=== PATIENT | female | born 1960 | race Two or more races ===

== ENCOUNTER → 2016-08-25 | Outpatient (CLI) | payer BC ==
--- NOTE | 2016-08-25 09:49 | REP ---
Clinical: Abdominal pain with change in bowel habits and elevated liver function tests . Technique: Templeton scale ultrasound using curved array transducer. Findings: The liver is diffusely increased echogenicity with poor through transmission suggesting fatty infiltration and/or hepatocellular disease with small focus of fatty sparing in the right lobe. The pancreas is normal in appearance and echogenicity. The gallbladder demonstrates small amount of layering sludge without gallstones, wall thickening or pericholecystic fluid. No biliary ductal dilatation is appreciated, and the common bile duct measures 5.4 mm diameter. The right kidney is normal in reniform shape without hydronephrosis and measures 12.5 x 6.2 x 5.3 cm. No ascites. Visualized portions of the abdominal aorta normal. Impression: Small amount of layering sludge in the gallbladder. Fatty infiltration to the liver with focal fatty sparing. Signed by Walt Cruz MD 08/25/2016 09:40 A
== END ==
LOC: M RAD 08:22
PROVIDERS: ATTEND Internal Medicine Gastroenterology
DX: R14.3 Flatulence (principal); R19.4 Change in bowel habit; K76.0 Fatty (change of) liver, not elsewhere classified; K21.9 Gastro-esophageal reflux disease without esophagitis

== ENCOUNTER → 2016-08-26 | Outpatient (REF) | payer BC | LOC: M SMT 17:07 | PROVIDERS: ATTEND Nurse Practitioner Women's Health | DX: R32 Unspecified urinary incontinence (principal) ==

== ENCOUNTER → 2016-09-08 | Outpatient (CLI) | payer BC ==
--- NOTE | 2016-09-08 15:09 | REP ---
LEFT FOOT SERIES: Two views. HISTORY: History of lupus, bilateral foot pain. FINDINGS: Two views left foot demonstrate prominent Achilles and plantar calcaneal spurring. There is osteoarthritic spurring and narrowing of the first MTP joint. Mild midfoot spurring is seen. Ankle joint osteoarthritic spurring is also noted. Overall mineralization pattern is normal. No erosive change is seen. IMPRESSION: Osteoarthritic changes. Otherwise unremarkable. Signed by Joaquin Gayle MD 09/08/2016 05:23 P
--- NOTE | 2016-09-08 15:10 | REP ---
RIGHT FOOT SERIES: TWO VIEWS. HISTORY: History of lupus. Bilateral foot pain. FINDINGS: Overall mineralization pattern is normal. There is mild to moderate osteoarthritic spurring at the midfoot articulations. There is osteoarthritis at the 1st MTP joint. No bony erosive changes seen. There are large Achilles and plantar calcaneal spurs. IMPRESSION: Osteoarthritic midfoot and 1st MTP joint spurring. Heel spurs. Signed by Joaquin Gayle MD 09/08/2016 05:23 P
== END ==
LOC: M ADAMS 13:23
PROVIDERS: ATTEND Internal Medicine
DX: M79.673 Pain in unspecified foot (principal)

== ENCOUNTER → 2016-10-13 | Outpatient (CLI) | payer BC ==
--- NOTE | 2016-10-13 20:34 | REPMRS ---
Patient History The patient states she has not had a clinical breast exam in over a year. Patient is postmenopausal. No known family history of cancer. Digital Woman Screen Mammo: October 13, 2016 - Exam #: [id number] Bilateral CC and MLO view(s) were taken. Technologist: Roya Gonzales, Technologist Prior study comparison: August 18, 2015, digital woman screen mammo performed at [facility] to [facility]. July 02, 2014, digital woman screen mammo performed at [facility]. May 31, 2013, digital woman screen mammo performed at [facility] to [facility]. FINDINGS: There are scattered fibroglandular densities. There has been no change in the appearance of the mammogram from the prior studies. There is a mild amount of scattered fibroglandular density which is fairly symmetric. There is no interval development of dominant mass, architectural distortion, or clustered microcalcification suggestive of malignancy. ASSESSMENT: BI-RADS/ACR category 1 mammogram. Negative. Recommendation Routine screening mammogram in 1 year (for women over age 40). This mammogram was interpreted with the aid of an FDA-approved computer-aided dectection system. Electronically Signed By: Kevin Gayle MD 10/13/16 0105
== END ==
LOC: M WHC 15:28
PROVIDERS: ATTEND Internal Medicine
DX: Z12.31 Encounter for screening mammogram for malignant neoplasm of breast (principal)

== ENCOUNTER 2017-02-17 17:34 | Emergency (ER) | payer BC ==
[~2017-02-17] VITALS: Ht 160 cm; Wt 97.4 kg
[2017-02-17] MEDS ORDERED: AMLO5TAB2 (17:53)
[2017-02-17] MEDS ORDERED: OXYB5TAB (17:53)
[2017-02-17] MEDS ORDERED: WARF-23 (17:53)
[2017-02-17] MEDS ORDERED: METO1TAB32 (17:53)
[2017-02-17] MEDS ORDERED: HYDR200T3 (17:53)
[2017-02-17] MEDS ORDERED: FENO145T (17:53)
[2017-02-17] MEDS ORDERED: IRBE300T10 (17:53)
[2017-02-17] MEDS ORDERED: LATA5OPD (17:53)
[2017-02-17] MEDS ORDERED: FURO40TA2 (17:53)
[2017-02-17] MEDS ORDERED: METF500T13 (17:53)
[2017-02-17] MEDS ORDERED: PANT40TA2 (17:53)
[2017-02-17 19:55] LABS: BASO % 0.6 % (0.0-1.0); EOS % 0.8 % (0.0-3.0); LARGE UNSTAINED CELL # 0.1 K/mm3 (0.0-0.4); LARGE UNSTAINED CELL % 2.8 % (0.0-4.0); LYMPH % 26.7 % (24.0-44.0); MEAN CORPUSCULAR HEMOGLOBIN 31.3 pg (27.0-33.0); MEAN CORPUSCULAR HGB CONC 34.4 g/dl (32.0-36.5); MONO # 0.3 K/mm3 (0.0-0.8); MONO % 7.7 % (0.0-5.0); NEUTROPHILS # 2.3 K/mm3 (1.8-7.7); NEUTROPHILS % 61.3 % (36.0-66.0); PLATELET COUNT, AUTOMATED 160 k/mm3 (150-450); WHITE BLOOD COUNT 3.7 K/mm3 (4.0-10.0)
--- NOTE | 2017-02-17 20:10 | REPUSA ---
HISTORY: DYSETHESIA. TECHNIQUE: Axial CT of head without contrast. DLP= 1407.4 mGy-cm. FINDINGS: Ventricles and sulci are of normal size for this age group. Templeton-white matter differentiati on is intact. There is no evidence of intracranial mass, mass effect, hemorrhage, or cystic lesion id entified. There is no detectable evidence of infarct. No bony lesions are seen in the calvarium or sk ull base. Paranasal sinuses and mastoid sinuses are clear. IMPRESSION: Negative noncontrast head CT examination.
[2017-02-17 20:14] LABS: CALCIUM LEVEL 9.9 MG/DL (8.5-10.1); CREATININE FOR GFR 1.07 MG/DL (0.55-1.02); GLOMERULAR FILTRATION RATE 56.7 (>51); POTASSIUM SERUM 3.8 MEQ/L (3.5-5.1); THYROXINE (T4) 12.4 UG/DL (4.5-12.0)
--- NOTE | 2017-02-17 20:40 | REPUSA ---
CLINICAL HISTORY: DYSETHESIA TECHNIQUE: Multiple axial images were obtained through the cervical spine. Images were also reconstru cted in coronal and sagittal planes. The study was performed without IV contrast. COMMENTS: There is no fracture or spondylolisthesis visualized. The paraspinal soft tissues are unremarkable. T here are no lytic or blastic lesions. Straightening of cervical lordosis is seen, suggesting muscular spasm. There is evidence of multileve l disk disease, demonstrated by osteophytosis and endplate sclerosis. There is broad based disk osteophyte complex noted at C5-6 and C6-7 with biforaminal and canal stenos is. IMPRESSION: 1. No fracture or spondylolisthesis. 2. Straightening of cervical lordosis is seen, suggesting muscular spasm. 3. Multilevel spondylosis. Boad based disk osteophyte complex noted at C5-6 and C6-7 with biforamina l and canal stenosis. Thank you for your kind referral of this patient.
--- NOTE | 2017-02-17 21:03 | ECGEPIP ---
Stationary ECG Study [facility] - ED Test Date: 2017-02-17 Pat Name: GRANT ESTRADA Department: Room: - Gender: F Print Production Associate: ct : 1960 Requested By: KADI OZUNA Order Number: [id number] Reading MD: Giovana Cortés Measurements Intervals [place] Rate: 66 P: 9 WI: 155 QRS: 4 QRSD: 96 T: 15 QT: 409 QTc: 429 Interpretive Statements SINUS RHYTHM SIMILAR 09/07/14 Electronically Signed On 02-17-2017 21:02:44 EDT by Giovana Cortés
[2017-02-17 21:43] LABS: ABG BASE EXCESS 1.3 (-2.0-2.0); ABG HCO3 26.9 MEQ/L (22.0-26.0); ABG PARTIAL PRESSURE CO2 46.6 mmHg (35.0-45.0); ABG STANDARD HCO3 24.9 MEQ/L (22.0-26.0); ABG TOTAL CO2 28.3 MEQ/L (22.0-29.0); ABG pH (ARTERIAL) 7.379 UNITS (7.350-7.450)
[2017-02-17 21:46] LABS: ABG PARTIAL PRESSURE O2 34.5 mmHg (75.0-100.0)
[2017-02-17] MEDS ORDERED: PREGABALIN 50 MG CAP (LYRICA) PO ONE (22:15)
[2017-02-17] MEDS ORDERED: NS 1,000 ML IV ONE (22:15)
[2017-02-17] MEDS ORDERED: PREG50CA PO (23:12)
[2017-02-17 23:16] VITALS: BP 133/76
== END 2017-02-17 23:47 | disposition home or self-care (01) ==
LOC: M ED 17:34
DX: G62.9 Polyneuropathy, unspecified (principal); E86.0 Dehydration; E11.9 Type 2 diabetes mellitus without complications; I10 Essential (primary) hypertension; Z86.73 Personal history of transient ischemic attack (TIA), and cerebral infarction without residual deficits; Z79.01 Long term (current) use of anticoagulants

== ENCOUNTER → 2017-03-28 | Outpatient (CLI) | payer BC ==
[~2017-03-28] MED LIST: AMLO5TAB2; FENO145T; FURO40TA2; HYDR200T3; IRBE300T10; LANS30CA; LATA5OPD; METF500T13; METO1TAB32; OXYB5TAB; PANT40TA2; PREG50CA PO; SUCR1TAB56; WARF-23
--- NOTE | 2017-03-28 09:14 | REP ---
Abdominal right upper quadrant ultrasound: There are multiple comparison abdominal upper quadrant ultrasound is as well as abdominal MRI examinations dated 04/20/2012 and 07/22/2006. There is a focal hypoechoic lesion in the right lobe of the liver today measuring 2.3 1.3 x 1.6 cm. On the prior ultrasound of 07/19 2006. This measured 3.9 x 3.2 x 3.8 cm. On the comparison MRI studies as this had findings compatible with hemangioma. The remainder of the hepatic parenchyma is otherwise mildly echogenic compatible with hepato steatosis with areas of focal fat sparing. There is biliary sludge layering dependently in the gallbladder. There is no cholelithiasis, gallbladder wall thickening or pericholecystic fluid. There is no intrahepatic or extrahepatic biliary duct dilatation, the common duct measures 5.2 mm in diameter. The visualized portion of the pancreatic head is unremarkable. The body and tail are obscured by bowel gas. There is no right renal hydronephrosis, calculus, mass or cyst. Right kidney is normal size measuring 11.6 cm craniocaudad length. Impression: There is no cholelithiasis. There is no ultrasound evidence of acute cholecystitis or biliary duct dilatation. There is a hypoechoic mass in the right lobe of the liver as described in the body of the report. On previous MRI studies, this had findings compatible with hemangioma. It appears to have decreased in size. Signed by Robson Lopez MD 03/28/2017 09:06 A
--- NOTE | 2017-03-28 14:02 | REP ---
Hepatobiliary scan and gallbladder ejection fraction: History: Gastroesophageal reflux disease and abdominal pain. Technique: 6.6 mCi of technetium-99m mebrofenin was injected and sequential anterior images are acquired. 65 minutes after the mebrofenin injection, the patient consumed 8 ounces Ensure and an additional 60 minutes of imaging was acquired. Regions of interest are plotted around the gallbladder. Findings: The initial hepatocellular parenchymal uptake phase is normal and homogeneous. Intra- and extra-hepatic bile ducts and duodenum are labeled by the 15 -minute image. The gallbladder is first labeled on the 15 -minute image. There is normal washout from the liver parenchyma into the gallbladder and small intestine on subsequent images. The gallbladder ejection fraction is three %. Values greater than 35 % are considered normal with this technique. Impression: Normal hepatobiliary scan and delayed gallbladder ejection fraction. Signed by Joqauin Gayle MD 03/28/2017 01:53 P
== END ==
LOC: M RAD 08:06
PROVIDERS: ATTEND Internal Medicine Gastroenterology
DX: R10.9 Unspecified abdominal pain (principal)
CPT/HCPCS: 76705; 78227; A9537; J2805

== ENCOUNTER → 2017-04-21 | Outpatient (REF) | payer BC | LOC: M LAB REF 12:24 | PROVIDERS: ATTEND Internal Medicine Gastroenterology | DX: K21.9 Gastro-esophageal reflux disease without esophagitis (principal); R10.11 Right upper quadrant pain; K30 Functional dyspepsia ==

== ENCOUNTER 2017-04-25 09:48 | Emergency (ER) | payer BC ==
[~2017-04-25] VITALS: Ht 160 cm; Wt 95.5 kg
[~2017-04-25 09:48] MED LIST changes: -LANS30CA; -SUCR1TAB56
[2017-04-25] MEDS ORDERED: LANS30CA (10:05)
[2017-04-25] MEDS ORDERED: SUCR1TAB56 (10:05)
--- NOTE | 2017-04-25 11:00 | REP ---
CT Head without contrast HISTORY: Left temporal headache COMPARISON: 02/17/2017 There is no intraparenchymal hemorrhage, acute infarct, mass or midline shift. The ventricular system is normal in appearance. There is no extra cerebral collection. There is no fracture. The visualized sinuses are clear. IMPRESSION: There is no intracranial lesion. Signed by Ra Butts MD 04/25/2017 10:52 A
[2017-04-25 11:09] LABS: BASO % 0.3 % (0.0-1.0); EOS % 0.6 % (0.0-3.0); IMMATURE GRANULOCYTE % 0.6 % (0-0); LYMPH # 0.9 10^3/uL (1.5-4.5); LYMPH % 24.8 % (24.0-44.0); MEAN CORPUSCULAR HGB CONC 33.8 g/dl (32.0-36.5); MEAN CORPUSCULAR VOLUME 91.6 fl (80.0-96.0); MONO # 0.3 10^3/uL (0.0-0.8); MONO % 8.4 % (0.0-5.0); NEUTROPHILS # 2.3 10^3/uL (1.8-7.7); NEUTROPHILS % 65.3 % (36.0-66.0); PLATELET COUNT, AUTOMATED 147 10^3/uL (150-450); RED CELL DISTRIBUTION WIDTH 13.3 % (11.5-14.5); WHITE BLOOD COUNT 3.5 10^3/uL (4.0-10.0)
[2017-04-25 11:16] LABS: INR 2.04
[2017-04-25 11:26] LABS: ANION GAP 7 MEQ/L (8-16); BLOOD UREA NITROGEN 15 MG/DL (7-18); CALCIUM LEVEL 9.2 MG/DL (8.5-10.1); CARBON DIOXIDE LEVEL 27 MEQ/L (21-32); CHLORIDE LEVEL 110 MEQ/L (98-107); CREATININE FOR GFR 0.67 MG/DL (0.55-1.02); GLOMERULAR FILTRATION RATE > 60.0 (>51); GLUCOSE, FASTING 98 MG/DL (70-105); POTASSIUM SERUM 4.1 MEQ/L (3.5-5.1); SODIUM LEVEL 144 MEQ/L (136-145)
[2017-04-25 11:49] LABS: ERYTHROCYTE SEDIMENTATION RATE 6 mm/hr (0-30)
[2017-04-25 13:14] VITALS: BP 142/92
== END 2017-04-25 13:16 | disposition home or self-care (01) ==
LOC: M ED 09:48
DX: R51 Headache (principal); I10 Essential (primary) hypertension; E11.9 Type 2 diabetes mellitus without complications; E78.00 Pure hypercholesterolemia, unspecified; D68.62 Lupus anticoagulant syndrome; Z79.899 Other long term (current) drug therapy; Z79.84 Long term (current) use of oral hypoglycemic drugs

== ENCOUNTER → 2017-07-01 | Outpatient (CLI) | payer BC ==
[~2017-07-01] MED LIST changes: +LANS30CA; +SUCR1TAB56
--- NOTE | 2017-07-01 14:20 | REP ---
DUPLEX CAROTID SONOGRAPHY: HISTORY: Lacunar strokes. FINDINGS: Antegrade flow was observed in both vertebral arteries. RIGHT CAROTID: The right common carotid artery shows minimal soft plaquing. There is minimal soft plaquing in the bulb and proximal ICA. Incidental note is made of a right thyroid nodule. There are some cervical lymph nodes noted. The largest on the right measures 2.1 x 1.1 x 1.3 cm. VELOCITY CHART, RIGHT CAROTID: Right CCA PSV 70 cm/s Right ICA PSV 65 EDV 29 Right ECA PSV 72 Right ICA/CCA ratio normal 0.9 IMPRESSION: 0-15% category narrowing in the right ICA. Minimal soft plaquing. Mildly prominent lymph nodes. LEFT CAROTID: There is minimal soft plaquing in the distal CCA on the left side and left proximal ICA. Color flow and spectral Doppler interrogation are unremarkable on the left. The largest left cervical lymph node is 2.7 x 1.0 x 1.1 cm. VELOCITY CHART, LEFT CAROTID: Left CCA PSV 86 cm/s Left ICA PSV 49 EDV 26 Left ECA PSV 51 Left ICA/CCA ratio normal 0.6 IMPRESSION: 0-15% category narrowing in the left ICA by Doppler velocity criteria. Incidental note is made of a right thyroid nodule and mildly prominent bilateral cervical lymph nodes. Signed by Joaquin Gayle MD 07/01/2017 03:58 P
== END ==
LOC: M RAD 13:03
PROVIDERS: ATTEND Psychiatry & Neurology Neurology
DX: I63.40 Cerebral infarction due to embolism of unspecified cerebral artery (principal); I65.21 Occlusion and stenosis of right carotid artery; R59.1 Generalized enlarged lymph nodes; E04.1 Nontoxic single thyroid nodule

== ENCOUNTER → 2017-10-27 | Outpatient (REF) | payer BC ==
[2017-10-27 13:04] LABS: ALBUMIN 4.4 GM/DL (3.2-5.2); ALBUMIN/GLOBULIN RATIO 1.26 (1.00-1.93); ALKALINE PHOSPHATASE 72 U/L (45-117); ALT/SGPT 30 U/L (12-78); AST/SGOT 24 U/L (7-37); BILIRUBIN,DIRECT 0.2 MG/DL (0.0-0.2); BILIRUBIN,TOTAL 0.7 MG/DL (0.2-1.0); LIPASE 443 U/L (73-393); TOTAL PROTEIN 7.9 GM/DL (6.4-8.2)
== END ==
LOC: M LABDRWAD 12:08
DX: R10.11 Right upper quadrant pain (principal); K76.0 Fatty (change of) liver, not elsewhere classified
CPT/HCPCS: 83690

== ENCOUNTER → 2017-11-09 | Outpatient (CLI) | payer BC ==
[~2017-11-09] MED LIST changes: -AMLO5TAB2; -FENO145T; -FURO40TA2; +GASTROGRAFIN SOLUTION 30ML (Q9963) As Ordered; -HYDR200T3; -IRBE300T10; -LANS30CA; -LATA5OPD; -METF500T13; -METO1TAB32; -OXYB5TAB; -PANT40TA2; -PREG50CA PO; -SUCR1TAB56; -WARF-23
== END ==
LOC: M RAD 13:13
DX: R10.13 Epigastric pain (principal); R14.0 Abdominal distension (gaseous); R85.0 Abnormal level of enzymes in specimens from digestive organs and abdominal cavity
CPT/HCPCS: Q9963

== ENCOUNTER 2018-01-23 12:50 | Emergency (ER) | payer BC | END 2018-01-23 15:36 | disposition home or self-care (01) | LOC: M ED 12:50 | DX: R04.0 Epistaxis (principal); I10 Essential (primary) hypertension; K21.9 Gastro-esophageal reflux disease without esophagitis; E78.9 Disorder of lipoprotein metabolism, unspecified; Z86.73 Personal history of transient ischemic attack (TIA), and cerebral infarction without residual deficits; Z87.891 Personal history of nicotine dependence; Z79.01 Long term (current) use of anticoagulants; Z79.899 Other long term (current) drug therapy | CPT/HCPCS: 99283 ==

== ENCOUNTER → 2018-02-21 | Outpatient (CLI) | payer BC | LOC: M WHC 10:29 | DX: Z12.31 Encounter for screening mammogram for malignant neoplasm of breast (principal); Z78.0 Asymptomatic menopausal state; Z80.8 Family history of malignant neoplasm of other organs or systems | CPT/HCPCS: 77067 ==

== ENCOUNTER → 2018-02-28 | Outpatient (REF) | payer BC ==
[2018-02-28 20:17] LABS: ALBUMIN 4.3 GM/DL (3.2-5.2); ALKALINE PHOSPHATASE 68 U/L (45-117); ALT/SGPT 51 U/L (12-78); ANION GAP 10 MEQ/L (8-16); AST/SGOT 34 U/L (7-37); BILIRUBIN,TOTAL 0.6 MG/DL (0.2-1.0); BLOOD UREA NITROGEN 16 MG/DL (7-18); C REACTIVE PROTEIN QUANTITATIV < 0.30 MG/DL (0.00-0.30); CALCIUM LEVEL 8.9 MG/DL (8.5-10.1); CARBON DIOXIDE LEVEL 26 MEQ/L (21-32); CHLORIDE LEVEL 109 MEQ/L (98-107); CREATININE FOR GFR 0.88 MG/DL (0.55-1.30); GLOMERULAR FILTRATION RATE > 60.0 (>51); GLUCOSE, FASTING 83 MG/DL (70-100); LIPASE 257 U/L (73-393); POTASSIUM SERUM 3.6 MEQ/L (3.5-5.1); SODIUM LEVEL 145 MEQ/L (136-145); TOTAL PROTEIN 7.6 GM/DL (6.4-8.2)
== END ==
LOC: M LABDRWAD 19:36
DX: R14.0 Abdominal distension (gaseous) (principal); R11.0 Nausea; K21.9 Gastro-esophageal reflux disease without esophagitis; K80.20 Calculus of gallbladder without cholecystitis without obstruction
CPT/HCPCS: 83690

== ENCOUNTER → 2018-05-08 | Outpatient (CLI) | payer BC | LOC: M RAD 08:12 | DX: R10.13 Epigastric pain (principal); R10.11 Right upper quadrant pain; R14.0 Abdominal distension (gaseous); K76.0 Fatty (change of) liver, not elsewhere classified; K82.8 Other specified diseases of gallbladder | CPT/HCPCS: 76705 ==

== ENCOUNTER → 2018-05-17 | Outpatient (REF) | payer BC ==
[2018-05-17 14:20] LABS: C REACTIVE PROTEIN QUANTITATIV < 0.30 MG/DL (0.00-0.30)
[2018-05-17 14:32] LABS: ERYTHROCYTE SEDIMENTATION RATE 6 mm/hr (0-30)
== END ==
LOC: M LABNEURO 11:25
DX: M26.622 Arthralgia of left temporomandibular joint (principal)

== ENCOUNTER → 2018-05-17 | Outpatient (CLI) | payer BC | LOC: M ADAMS 15:21 | DX: M26.609 Unspecified temporomandibular joint disorder, unspecified side (principal) | CPT/HCPCS: 70330 ==

== ENCOUNTER → 2018-06-08 | Outpatient (REF) | payer BC ==
[2018-06-08 19:47] LABS: HEMATOCRIT 36.5 % (36.0-47.0); HEMOGLOBIN 11.9 g/dl (12.0-15.5); MEAN CORPUSCULAR HEMOGLOBIN 30.3 pg (27.0-33.0); MEAN CORPUSCULAR HGB CONC 32.6 g/dl (32.0-36.5); MEAN CORPUSCULAR VOLUME 92.9 fl (80.0-96.0); PLATELET COUNT, AUTOMATED 262 10^3/uL (150-450); RED BLOOD COUNT 3.93 10^6/uL (4.00-5.40); RED CELL DISTRIBUTION WIDTH 13.1 % (11.5-14.5); WHITE BLOOD COUNT 4.7 10^3/uL (4.0-10.0)
[2018-06-08 20:05] LABS: ALBUMIN/GLOBULIN RATIO 1.25 (1.00-1.93); ALKALINE PHOSPHATASE 72 U/L (45-117); ALT/SGPT 47 U/L (12-78); ANION GAP 9 MEQ/L (8-16); AST/SGOT 31 U/L (7-37); BILIRUBIN,TOTAL 0.4 MG/DL (0.2-1.0); BLOOD UREA NITROGEN 22 MG/DL (7-18); CALCIUM LEVEL 8.6 MG/DL (8.5-10.1); CARBON DIOXIDE LEVEL 28 MEQ/L (21-32); CHLORIDE LEVEL 106 MEQ/L (98-107); CREATININE FOR GFR 1.01 MG/DL (0.55-1.30); GLOMERULAR FILTRATION RATE > 60.0 (>51); GLUCOSE, FASTING 95 MG/DL (70-100); LIPASE 247 U/L (73-393); MAGNESIUM LEVEL 1.9 MG/DL (1.8-2.4); POTASSIUM SERUM 4.7 MEQ/L (3.5-5.1); SODIUM LEVEL 143 MEQ/L (136-145); TOTAL 25(OH) VITAMIN D 25.4 NG/ML (30.0-100.0); TOTAL PROTEIN 7.2 GM/DL (6.4-8.2)
[2018-06-09 10:00] LABS: ALPHA FETOPROTEIN TUMOR QUANT 2.5 NG/ML (<8.1)
== END ==
LOC: M LABDRWAD 19:25
DX: R10.13 Epigastric pain (principal); K76.0 Fatty (change of) liver, not elsewhere classified; K80.20 Calculus of gallbladder without cholecystitis without obstruction; R10.11 Right upper quadrant pain; R93.3 Abnormal findings on diagnostic imaging of other parts of digestive tract
CPT/HCPCS: 83690

== ENCOUNTER → 2018-06-20 | Outpatient (CLI) | payer BC ==
[~2018-06-20] MED LIST changes: -GASTROGRAFIN SOLUTION 30ML (Q9963) As Ordered; +PROHANCE 279.3MG/ML 15ML VIAL (A9576) As Ordered
== END ==
LOC: M RAD 17:54
DX: K80.20 Calculus of gallbladder without cholecystitis without obstruction (principal); K82.8 Other specified diseases of gallbladder; R10.11 Right upper quadrant pain; R93.3 Abnormal findings on diagnostic imaging of other parts of digestive tract
CPT/HCPCS: A9576

== ENCOUNTER → 2018-11-20 | Outpatient (CLI) | payer BC ==
[~2018-11-20] MED LIST changes: +AMLO5TAB6 PO; +COUM2.5T17 PO; +ENOX80IN3 SUBQ; +FENO145T13 PO; +FURO40TA2 PO; +HYDR200T3 PO; +IRBE300T10 PO; +LANS30CA; +LATA0.0013; +METF500T13; +METO1TAB32 PO; +NEUR300C PO; +NORT50CA PO; +OXYB5TAB PO; +PANT40TA3; +PANT40TA3 PO; +PREG50CA PO; -PROHANCE 279.3MG/ML 15ML VIAL (A9576) As Ordered; +SUCR1TAB56; +VITA2000 PO; +WARF-23; +XALA0.007 OU
--- NOTE | 2018-11-21 03:36 | REP ---
Clinical: Trauma. Technique: Frontal view of the chest with four views of the left hemithorax. Findings: Frontal view of the chest demonstrates no acute cardiopulmonary process. Multiple views of the left hemithorax demonstrates no obvious acute rib fracture or pathology. However, very subtle nondisplaced fracture along the very anterolateral margin of the left eighth rib only suspected on image number 3 of 5 and correlation may be warranted. Impression: No definite acute fracture. As detailed above. Electronically Signed by Walt Cruz MD 11/21/2018 03:27 A
== END ==
LOC: M ADAMS 09:05
PROVIDERS: ATTEND Physician Assistant
DX: S20.212A Contusion of left front wall of thorax, initial encounter (principal); X58.XXXA Exposure to other specified factors, initial encounter; Y92.89 Other specified places as the place of occurrence of the external cause

== ENCOUNTER → 2019-03-30 | Outpatient (CLI) | payer BC ==
[~2019-03-30] MED LIST changes: -OXYB5TAB PO; +OXYB5TAB2 PO
--- NOTE | 2019-03-30 09:44 | REP ---
Right upper quadrant abdominal ultrasound for abdominal pain: Comparison is the abdomen/pelvis CT dated 11/09/2017. On the comparison CT there was cholelithiasis. The the patient has had an interim cholecystectomy per There is no intrahepatic or extrahepatic biliary duct dilatation. The common biliary duct measures 5.3 mm in diameter. The hepatic parenchyma is mildly heterogeneous but otherwise unremarkable. This is compatible with diffuse hepatocellular disease. There are no hepatic masses. The pancreas is obscured by bowel gas. The right kidney measures 12.3 x 5.6 x 6.1 cm and is normal size. There is no right renal calculus, hydronephrosis, mass or cyst. There is no right upper quadrant abdominal ascites. The study is technically difficult because of patient body habitus. Impression: Mildly heterogeneous hepatic parenchyma. No hepatic masses. No biliary duct dilatation. Cholecystectomy. Pancreas is obscured by bowel gas. Electronically Signed by Robson Lopez MD 03/30/2019 09:35 A
== END ==
LOC: M RAD 07:56
PROVIDERS: ATTEND Internal Medicine Gastroenterology
DX: R10.11 Right upper quadrant pain (principal)

== ENCOUNTER → 2019-04-09 | Outpatient (REF) | payer BC ==
[~2019-04-09] MED LIST changes: -FENO145T13 PO; +FENO145T7 PO; +OXYB-54 PO; -OXYB5TAB2 PO
[2019-04-09 13:18] LABS: ALT/SGPT 37 U/L (12-78); BILIRUBIN,TOTAL 0.5 MG/DL (0.2-1.0); BLOOD UREA NITROGEN 20 MG/DL (7-18); CALCIUM LEVEL 9.1 MG/DL (8.5-10.1); CARBON DIOXIDE LEVEL 28 MEQ/L (21-32); CHLORIDE LEVEL 113 MEQ/L (98-107); CREATININE FOR GFR 0.69 MG/DL (0.55-1.30); GLOMERULAR FILTRATION RATE > 60.0 (>51); GLUCOSE, FASTING 102 MG/DL (70-100); LIPASE 300 U/L (73-393); MAGNESIUM LEVEL 2.1 MG/DL (1.8-2.4); POTASSIUM SERUM 4.7 MEQ/L (3.5-5.1); SODIUM LEVEL 147 MEQ/L (136-145); TOTAL PROTEIN 7.5 GM/DL (6.4-8.2)
[2019-04-09 13:26] LABS: VITAMIN B12 LEVEL 500 PG/ML (247-911)
== END ==
LOC: M LABDRWAD 12:51
PROVIDERS: ATTEND Internal Medicine Gastroenterology
DX: Z12.11 Encounter for screening for malignant neoplasm of colon (principal); R10.11 Right upper quadrant pain; K76.0 Fatty (change of) liver, not elsewhere classified; K21.9 Gastro-esophageal reflux disease without esophagitis

== ENCOUNTER → 2019-05-06 | Outpatient (CLI) | payer BC ==
[~2019-05-06] MED LIST changes: +FENO145T13 PO; -FENO145T7 PO; -OXYB-54 PO; +OXYB5TAB2 PO
[2019-05-06 18:06] LABS: HEMATOCRIT 38.1 % (36.0-47.0); HEMOGLOBIN 12.4 g/dl (12.0-15.5); MEAN CORPUSCULAR HEMOGLOBIN 31.2 pg (27.0-33.0); MEAN CORPUSCULAR HGB CONC 32.5 g/dl (32.0-36.5); PLATELET COUNT, AUTOMATED 200 10^3/uL (150-450); RED BLOOD COUNT 3.97 10^6/uL (4.00-5.40); WHITE BLOOD COUNT 3.7 10^3/uL (4.0-10.0)
[2019-05-06 18:10] LABS: ALBUMIN 4.1 GM/DL (3.2-5.2); BILIRUBIN,DIRECT 0.1 MG/DL (0.0-0.2); BILIRUBIN,TOTAL 0.6 MG/DL (0.2-1.0); TOTAL PROTEIN 7.2 GM/DL (6.4-8.2)
== END ==
LOC: M LABDRWAD 12:03
PROVIDERS: ATTEND Internal Medicine Gastroenterology
DX: R10.11 Right upper quadrant pain (principal)

== ENCOUNTER → 2019-05-28 | Outpatient (REF) | payer BC ==
[2019-05-28 20:07] LABS: HEMATOCRIT 38.8 % (36.0-47.0); HEMOGLOBIN 12.3 g/dl (12.0-15.5); MEAN CORPUSCULAR HEMOGLOBIN 30.1 pg (27.0-33.0); MEAN CORPUSCULAR HGB CONC 31.7 g/dl (32.0-36.5); MEAN CORPUSCULAR VOLUME 95.1 fl (80.0-96.0); PLATELET COUNT, AUTOMATED 203 10^3/uL (150-450); RED BLOOD COUNT 4.08 10^6/uL (4.00-5.40); WHITE BLOOD COUNT 5.1 10^3/uL (4.0-10.0)
[2019-05-28 20:10] LABS: ALBUMIN 4.2 GM/DL (3.2-5.2); ALT/SGPT 40 U/L (12-78); BILIRUBIN,TOTAL 0.4 MG/DL (0.2-1.0); BLOOD UREA NITROGEN 22 MG/DL (7-18); CALCIUM LEVEL 9.3 MG/DL (8.5-10.1); CARBON DIOXIDE LEVEL 27 MEQ/L (21-32); CHLORIDE LEVEL 111 MEQ/L (98-107); CREATININE FOR GFR 0.94 MG/DL (0.55-1.30); GLOMERULAR FILTRATION RATE > 60.0 (>51); GLUCOSE, FASTING 84 MG/DL (70-100); LIPASE 399 U/L (73-393); SODIUM LEVEL 143 MEQ/L (136-145); TOTAL PROTEIN 7.6 GM/DL (6.4-8.2)
== END ==
LOC: M LABDRWAD 19:36
PROVIDERS: ATTEND Internal Medicine Gastroenterology
DX: R10.11 Right upper quadrant pain (principal)

== ENCOUNTER → 2019-05-30 | Outpatient (REF) | payer BC | LOC: M LAB REF 19:12 | PROVIDERS: ATTEND Internal Medicine Gastroenterology | DX: R10.11 Right upper quadrant pain (principal); R10.13 Epigastric pain; R19.7 Diarrhea, unspecified ==

== ENCOUNTER → 2019-06-06 | Outpatient (CLI) | payer BC ==
[2019-06-06 16:24] LABS: BLOOD UREA NITROGEN 20 MG/DL (7-18); CALCIUM LEVEL 8.9 MG/DL (8.5-10.1); CARBON DIOXIDE LEVEL 26 MEQ/L (21-32); CHLORIDE LEVEL 111 MEQ/L (98-107); CREATININE FOR GFR 0.95 MG/DL (0.55-1.30); GLOMERULAR FILTRATION RATE > 60.0 (>51); GLUCOSE, FASTING 87 MG/DL (70-100); POTASSIUM SERUM 3.6 MEQ/L (3.5-5.1); SODIUM LEVEL 141 MEQ/L (136-145)
== END ==
LOC: M LAB 15:29
PROVIDERS: ATTEND Physician Assistant
DX: I10 Essential (primary) hypertension (principal); Z79.899 Other long term (current) drug therapy

== ENCOUNTER → 2019-06-19 | Outpatient (CLI) | payer BC ==
[~2019-06-19] MED LIST changes: +GASTROGRAFIN SOLUTION 30ML (Q9963) As Ordered ONE; +ISOVUE-370 76% 100ML VIAL (Q9967) As Ordered ONE; -OXYB5TAB2 PO; +OXYB5TAB3 PO
--- NOTE | 2019-06-20 09:45 | REP ---
CT ABDOMEN AND PELVIS WITHOUT AND WITH IV CONTRAST: With oral contrast. HISTORY: Abdomen pain right upper quadrant. Comparison MRI study of the abdomen is from June 20, 2018. This showed a benign hemangioma of the liver and sludge in the gallbladder. Comparison CT study November 09, 2017. This was a noncontrast exam. Comparison contrast enhanced exam is from October 10, 2014. CT CONTRAST DOSE: 100 mL of intravenous Isovue [address] FINDINGS: Digital preliminary tinsmith apprentice radiograph demonstrates a left hip arthroplasty and a normal bowel gas pattern. The lung bases are essentially clear. No pleural effusion is seen. The contrast enhanced venous phase and delayed phase images demonstrate a geographic area of increased parenchymal enhancement of the right lobe of the liver surrounding a small hypervascular lesion, which is stable from the 2014 prior study and unchanged from the June 20, 2018 MRI exam. No new liver lesion is seen. No mass lesion is seen. There is minimal diffuse fatty infiltration. No adrenal lesion is observed. No abnormalities noted in the pancreas. Clips are noted in the gallbladder fossa. The kidneys enhance symmetrically. No hydronephrosis or mass lesion is seen. No renal calculus is observed. There is a new nodular lesion demonstrating enhancement and some adjacent edema in the subcutaneous fat of the anterior abdominal wall to the left of the umbilicus. This measures 3.8 cm craniocaudal x 2.4 cm medial to lateral x 2.3 cm anterior to posterior. There is slight thickening of the overlying skin. There is a second nodule lower down in the anterior abdominal wall subcutaneous fat containing an air bubble in addition to a soft tissue density. These could be small hematoma is related to subcutaneous injections. This should be correlated with clinical history and physical exam findings. These lesions were not present previously. There are two smaller nodules in the subcutaneous fat on the right. I suspect these are related to subcutaneous injections. Small and large bowel loops are normal in the abdomen and pelvis. Urinary bladder is unremarkable. There is spray artifact from the left hip arthroplasty. The uterus is surgically absent. No abdominal wall defect or bony destructive lesion is appreciated. Normal appendix is seen. IMPRESSION: Status post cholecystectomy and hysterectomy. Stable hypervascular right lobe liver lesion unchanged from 2015. Subcutaneous nodules in the anterior abdominal wall felt to be related to subcutaneous injections as discussed above. Otherwise no acute disease. Electronically Signed by Joaquin Gayle MD 06/20/2019 05:37 P
== END ==
LOC: M RAD 15:22
PROVIDERS: ATTEND Internal Medicine Gastroenterology
DX: R10.11 Right upper quadrant pain (principal); R93.3 Abnormal findings on diagnostic imaging of other parts of digestive tract
CPT/HCPCS: 74178; Q9963; Q9967

== ENCOUNTER → 2019-07-10 | Outpatient (REF) | payer BC ==
[~2019-07-10] MED LIST changes: -GASTROGRAFIN SOLUTION 30ML (Q9963) As Ordered ONE; -ISOVUE-370 76% 100ML VIAL (Q9967) As Ordered ONE
[2019-07-13 10:06] LABS: ANTINUCLEAR ANTIBODIES DIRECT Negative (Negative)
== END ==
LOC: M LABDRWAD 12:13
PROVIDERS: ATTEND Psychiatry & Neurology Neurology
DX: R51 Headache (principal)

== ENCOUNTER → 2019-08-15 | Outpatient (CLI) | payer BC ==
[~2019-08-15] MED LIST changes: -FENO145T13 PO; +FENO145T7 PO; -IRBE300T10 PO; +IRBE300T7 PO; +OXYB-54 PO; -OXYB5TAB3 PO; +TOPI50TA9
--- NOTE | 2019-09-20 14:13 | REP ---
Chest x-ray: Two views. Repeat dictation. History: Costochondral junctions syndrome. Preliminary report is provided at the time of the examination by Dr. Cruz. Comparison study: November 20, 2018. . Findings: The lungs are well inflated and free of infiltrate. The pleural angles are sharp. The heart size is normal. Pulmonary vasculature is not increased. No significant bony abnormality is seen. There are degenerative disc changes in the thoracic spine. Impression: Negative chest x-ray. Electronically Signed by Joaquin Gayle MD 09/20/2019 02:04 P
== END ==
LOC: M ADAMS 14:55
PROVIDERS: ATTEND Internal Medicine
DX: M94.0 Chondrocostal junction syndrome [Tietze] (principal)

== ENCOUNTER 2019-08-23 15:19 | Emergency (ER) | payer BC ==
[~2019-08-23] VITALS: Ht 160 cm; Wt 107.3 kg
[~2019-08-23 15:19] MED LIST changes: -TOPI50TA9
--- NOTE | 2019-08-23 15:49 | REP ---
Clinical: Chest pain . Comparison: 08/15/2019 . Findings: The mediastinum and cardiac silhouette are stable and within normal limits for portable technique. The lung nguyen are clear without acute consolidation, effusion, or pneumothorax. Skeletal structures are intact. Impression: No acute cardiopulmonary process appreciated. Electronically Signed by Walt Cruz MD 08/23/2019 03:41 P
[2019-08-23] MEDS ORDERED: TOPI50TA9 (16:02)
[2019-08-23 16:12] LABS: BASO % 0.6 % (0.0-1.0); EOS # 0.1 10^3/uL (0.0-0.5); HEMATOCRIT 39.2 % (36.0-47.0); LYMPH % 20.1 % (24.0-44.0); MEAN CORPUSCULAR HEMOGLOBIN 31.3 pg (27.0-33.0); MEAN CORPUSCULAR HGB CONC 33.2 g/dl (32.0-36.5); MEAN CORPUSCULAR VOLUME 94.5 fl (80.0-96.0); MONO # 0.4 10^3/uL (0.0-0.8); MONO % 8.1 % (0.0-5.0); NEUTROPHILS # 3.4 10^3/uL (1.5-8.5); NEUTROPHILS % 69.8 % (36.0-66.0); PLATELET COUNT, AUTOMATED 171 10^3/uL (150-450); RED BLOOD COUNT 4.15 10^6/uL (4.00-5.40); WHITE BLOOD COUNT 4.9 10^3/uL (4.0-10.0)
[2019-08-23 16:43] LABS: BLOOD UREA NITROGEN 26 MG/DL (7-18); CALCIUM LEVEL 9.2 MG/DL (8.5-10.1); CARBON DIOXIDE LEVEL 29 MEQ/L (21-32); CHLORIDE LEVEL 108 MEQ/L (98-107); CK-MB VALUE MASS 1.2 NG/ML (<3.6); CPK CREATINE PHOSPHOKINASE 88 U/L (26-192); CREATININE FOR GFR 0.82 MG/DL (0.55-1.30); GLOMERULAR FILTRATION RATE > 60.0 (>51); GLUCOSE, FASTING 84 MG/DL (70-100); MB/CK RELATIVE INDEX 1.36 (< OR =4); POTASSIUM SERUM 3.8 MEQ/L (3.5-5.1); SODIUM LEVEL 144 MEQ/L (136-145); TROPONIN I < 0.02 NG/ML (< 0.10)
--- NOTE | 2019-08-23 17:21 | REP ---
Clinical: Left shoulder pain. Technique: Internal rotation, external rotation, and Y view of the left shoulder. Findings: Mild cortical irregularity and spurring at the acromioclavicular joint noted. Subacromial space is normal. Glenohumeral joint is relatively normal. No acute fracture or dislocation. Impression: Mild degenerative changes at the acromioclavicular joint. Electronically Signed by Walt Cruz MD 08/23/2019 05:12 P
[2019-08-23 18:15] VITALS: BP 117/70
--- NOTE | 2019-08-24 05:45 | ECGEPIP ---
[facility] - ED Test Date: 2019-08-23 Pat Name: GRANT ESTRADA Department: Room: - Gender: Female Regulatory Internship: JORGE ALBERTO : 1960 Requested By: Donte Chavarria Order Number: [id number] Reading MD: Brian Manley Measurements Intervals [place] Rate: 66 P: 6 NV: 146 QRS: -4 QRSD: 109 T: 10 QT: 387 QTc: 407 Interpretive Statements SINUS RHYTHM Similar to tracing done 02-17-17 Electronically Signed on 08-24-2019 5:45:26 EST by Brian Manley
== END 2019-08-23 18:43 | disposition home or self-care (01) ==
LOC: M ED 15:19
DX: M75.32 Calcific tendinitis of left shoulder (principal); M32.9 Systemic lupus erythematosus, unspecified; Z79.899 Other long term (current) drug therapy; Z79.01 Long term (current) use of anticoagulants

== ENCOUNTER 2019-12-06 13:38 | Emergency (ER) | payer BC ==
[~2019-12-06] VITALS: Ht 160 cm; Wt 107.5 kg
[~2019-12-06 13:38] MED LIST changes: +TOPI50TA9
[2019-12-06] MEDS ORDERED: MAGN400T3 (14:13)
[2019-12-06] MEDS ORDERED: BUDE3CAP (14:13)
[2019-12-06] MEDS ORDERED: METF10004 (14:13)
[2019-12-06] MEDS ORDERED: WARF-23 PO (14:13)
[2019-12-06 14:51] LABS: BASO % 0.8 % (0.0-1.0); EOS # 0.1 10^3/uL (0.0-0.5); EOS % 1.7 % (0.0-3.0); HEMATOCRIT 41.2 % (36.0-47.0); HEMOGLOBIN 13.4 g/dl (12.0-15.5); LYMPH % 21.8 % (24.0-44.0); MEAN CORPUSCULAR HEMOGLOBIN 30.4 pg (27.0-33.0); MEAN CORPUSCULAR HGB CONC 32.5 g/dl (32.0-36.5); MEAN CORPUSCULAR VOLUME 93.4 fl (80.0-96.0); MONO # 0.4 10^3/uL (0.0-0.8); NEUTROPHILS # 3.2 10^3/uL (1.5-8.5); NEUTROPHILS % 67.3 % (36.0-66.0); PLATELET COUNT, AUTOMATED 186 10^3/uL (150-450); RED BLOOD COUNT 4.41 10^6/uL (4.00-5.40); WHITE BLOOD COUNT 4.8 10^3/uL (4.0-10.0)
[2019-12-06] MEDS ORDERED: CYCL5TAB PO (15:13)
[2019-12-06 15:14] LABS: ALBUMIN 4.3 GM/DL (3.2-5.2); ALT/SGPT 66 U/L (12-78); BILIRUBIN,DIRECT 0.2 MG/DL (0.0-0.2); BILIRUBIN,TOTAL 0.7 MG/DL (0.2-1.0); BLOOD UREA NITROGEN 15 MG/DL (7-18); C REACTIVE PROTEIN QUANTITATIV < 0.30 MG/DL (0.00-0.30); CALCIUM LEVEL 8.2 MG/DL (8.5-10.1); CARBON DIOXIDE LEVEL 26 MEQ/L (21-32); CHLORIDE LEVEL 113 MEQ/L (98-107); GLOMERULAR FILTRATION RATE > 60.0 (>51); GLUCOSE, FASTING 91 MG/DL (70-100); LIPASE 250 U/L (73-393); POTASSIUM SERUM 4.1 MEQ/L (3.5-5.1); SODIUM LEVEL 144 MEQ/L (136-145); TOTAL PROTEIN 7.4 GM/DL (6.4-8.2)
[2019-12-06 15:22] VITALS: BP 144/86
[2019-12-06 15:25] LABS: ERYTHROCYTE SEDIMENTATION RATE 5 mm/hr (0-30)
--- NOTE | 2019-12-06 21:11 | ECGEPIP ---
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
== END 2019-12-06 15:24 | disposition home or self-care (01) ==
LOC: M ED 13:38
DX: R07.89 Other chest pain (principal); M79.10 Myalgia, unspecified site; I10 Essential (primary) hypertension; M32.9 Systemic lupus erythematosus, unspecified; K21.9 Gastro-esophageal reflux disease without esophagitis; E78.5 Hyperlipidemia, unspecified; Z86.73 Personal history of transient ischemic attack (TIA), and cerebral infarction without residual deficits; E66.9 Obesity, unspecified; Z79.01 Long term (current) use of anticoagulants

== ENCOUNTER → 2019-12-19 | Outpatient (CLI) | payer BC ==
[~2019-12-19] MED LIST changes: +BUDE3CAP; +CYCL5TAB PO; +MAGN400T3; +METF10004; +WARF-23 PO
--- NOTE | 2019-12-19 16:33 | REPMRS ---
Patient History The patient states she has not had a clinical breast exam in over a year. Family history of pancreatic cancer at age 50 or over in mother. 3D TOMOSYNTHESIS WAS PERFORMED. [facility] lifetime risk for breast cancer is 5.8%. SAI Hoffman. Digital Woman Screen Mammo: December 19, 2019 - Exam #: [id number] Bilateral CC and MLO view(s) were taken. Technologist: Ashli Patterson, Technologist Prior study comparison: February 21, 2018, bilateral digital woman screen mamm[facility]. October 13, 2016, digital woman screen mammo performed at [facility]. FINDINGS: There are scattered fibroglandular densities. There has been no change in the appearance of the mammogram from the prior studies. There is a mild amount of residual fibroglandular tissue which is fairly symmetric. There is no interval development of dominant mass, architectural distortion, or clustered microcalcification suggestive of malignancy. Assessment: BI-RADS/ACR category 1 mammogram. Negative Mammogram. Recommendation Routine screening mammogram in 1 year (for women over age 40). This mammogram was interpreted with the aid of an FDA-approved computer-aided dectection system. Electronically Signed By: Robson Templeton MD 12/19/19 [id number]
== END ==
LOC: M WHC 15:24
PROVIDERS: ATTEND Internal Medicine
DX: Z12.31 Encounter for screening mammogram for malignant neoplasm of breast (principal)

== ENCOUNTER → 2020-02-22 | Outpatient (CLI) | payer BC ==
[~2020-02-22] MED LIST changes: +AMLO1TAB24 PO; -AMLO5TAB6 PO; +PANT40TA29; +PANT40TA29 PO; -PANT40TA3; -PANT40TA3 PO
--- NOTE | 2020-04-04 13:47 | REP ---
RIGHT UPPER QUADRANT ULTRASOUND HISTORY: Abdominal pain. TECHNIQUE: Real-time sonographic evaluation of the right upper quadrant performed. The patient has had a prior cholecystectomy in July 2018. There is no intrahepatic or extrahepatic biliary dilatation. Common bile duct measures 5 mm. Liver is enlarged measuring 20 cm in length to the midclavicular line. There is diffuse increased heterogeneous echotexture of the liver compatible with diffuse fibrofatty infiltration. No gross liver or pancreatic mass is seen. Evaluation of the pancreas is limited due to overlying bowel gas. Right kidney demonstrates no hydronephrosis with normal size 13.3 cm in length. There is no free fluid. IMPRESSION: Status post cholecystectomy without biliary dilatation or free fluid. Hepatomegaly with diffuse fibrofatty infiltration of the liver. MTDD
== END ==
LOC: M RAD 10:25
PROVIDERS: ATTEND Internal Medicine Gastroenterology
DX: R16.0 Hepatomegaly, not elsewhere classified (principal); K76.0 Fatty (change of) liver, not elsewhere classified; R10.13 Epigastric pain; R10.11 Right upper quadrant pain; Z90.49 Acquired absence of other specified parts of digestive tract; K52.89 Other specified noninfective gastroenteritis and colitis

== ENCOUNTER → 2020-05-23 | Outpatient (CLI) | payer BC ==
--- NOTE | 2020-05-23 13:32 | REP ---
INDICATION: ACUTE BRONCHITIS. COMPARISON: 08/23/2019. FINDINGS: The superior mediastinal structures are midline. The cardiac silhouette is unremarkable in size, shape, and position. The diaphragmatic surfaces of the lungs are regular, and the costophrenic angles are clear. The pulmonary nguyen are clear. The imaged osseous structures are intact. IMPRESSION: There is no acute cardiopulmonary disease. <Electronically signed by Tavo Lin > 05/23/20 [id number]
== END ==
LOC: M WUC 11:59
PROVIDERS: ATTEND Internal Medicine
DX: J20.9 Acute bronchitis, unspecified (principal)

== ENCOUNTER → 2020-06-19 | Outpatient (REF) | payer BC ==
[2020-06-19 18:02] LABS: ALBUMIN 4.2 GM/DL (3.2-5.2); ALT/SGPT 55 U/L (12-78); BILIRUBIN,TOTAL 0.5 MG/DL (0.2-1.0); BLOOD UREA NITROGEN 24 MG/DL (7-18); CALCIUM LEVEL 8.6 MG/DL (8.5-10.1); CARBON DIOXIDE LEVEL 29 MEQ/L (21-32); CHLORIDE LEVEL 114 MEQ/L (98-107); CREATININE FOR GFR 0.93 MG/DL (0.55-1.30); GLOMERULAR FILTRATION RATE > 60.0 (>51); GLUCOSE, FASTING 109 MG/DL (70-100); POTASSIUM SERUM 4.4 MEQ/L (3.5-5.1); SODIUM LEVEL 146 MEQ/L (136-145); TOTAL PROTEIN 7.2 GM/DL (6.4-8.2)
== END ==
LOC: M LABDRWAD 16:38
PROVIDERS: ATTEND Internal Medicine Gastroenterology
DX: R10.13 Epigastric pain (principal); R10.31 Right lower quadrant pain; R93.3 Abnormal findings on diagnostic imaging of other parts of digestive tract

== ENCOUNTER → 2020-06-24 | Outpatient (CLI) | payer BC ==
[~2020-06-24] MED LIST changes: +GASTROGRAFIN SOLUTION 30ML (Q9963) As Ordered ONE; +ISOVUE-370 76% 100ML VIAL As Ordered ONE
--- NOTE | 2020-06-24 19:05 | REP ---
INDICATION: ABD PAIN. There is a left hip arthroplasty. This is unchanged. There is no free fluid or adenopathy. Bladder is unremarkable. The pelvic bowel loops are unremarkable. COMPARISON: Abdomen and pelvis CT dated 06/19/2019. TECHNIQUE: Abdomen and pelvis CT with IV and bowel contrast. FINDINGS: The patient has a hysterectomy and cholecystectomy as previously. The visualized lung nguyen are unremarkable. The subcutaneous nodules in the anterior abdominal wall on the prior study have resolved, likely hematomas or subcutaneous injections previously. Lungs There is a stable enhancing lesion peripherally in the right lobe of the liver, unchanged. The hepatic parenchyma is otherwise unremarkable. The pancreas and spleen are normal size and unchanged. There is a small splenic calcified granuloma, unchanged. The adrenals are unremarkable. The kidneys are unremarkable. The abdominal aorta is unremarkable. There is no periaortic adenopathy or mass. There is no ascites. There is no bowel distention or obstruction. The bowel contrast is in small bowel loops but has not reached the colon at the time of scanning. There are at least 4 focal hyperdense objects within the cecum and ascending colon. These could be ingested foreign bodies or ingested tablets that had not dissolved by the time they reach the colon. There is no pneumoperitoneum. There is no free intraperitoneal fluid. Pelvis: There is a left hip arthroplasty. This is unchanged. There is no ascites, adenopathy or mass. The pelvic bowel loops are unremarkable. IMPRESSION: There are at least 4 radiopaque foreign bodies versus ingested tablets in the cecum and ascending colon. There is no evidence of bowel perforation. There is no bowel distention or obstruction. The previous subcutaneous injections versus subcutaneous hematomas have resolved. There is no ascites, adenopathy or mass. There has been a cholecystectomy, hysterectomy and left hip arthroplasty, all unchanged. No bowel distention or obstruction. No hemoperitoneum or assist ascites. No pneumoperitoneum. <Electronically signed by Robson Lopez > 06/24/20 1319
== END ==
LOC: M RAD 15:52
PROVIDERS: ATTEND Internal Medicine Gastroenterology
DX: R10.13 Epigastric pain (principal); R10.31 Right lower quadrant pain; R93.3 Abnormal findings on diagnostic imaging of other parts of digestive tract
CPT/HCPCS: 74177; Q9963; Q9967

== ENCOUNTER → 2020-07-10 | Outpatient (REF) | payer BC ==
[~2020-07-10] MED LIST changes: -GASTROGRAFIN SOLUTION 30ML (Q9963) As Ordered ONE; -ISOVUE-370 76% 100ML VIAL As Ordered ONE
== END ==
LOC: M LAB REF 11:59
PROVIDERS: ATTEND Physician Assistant
DX: R19.7 Diarrhea, unspecified (principal)

== ENCOUNTER → 2020-07-22 | Outpatient (CLI) | payer SELFPAY | LOC: M LABSMTC 11:08 | PROVIDERS: ATTEND Pediatrics | DX: Z20.828 Contact with and (suspected) exposure to other viral communicable diseases (principal) ==

== ENCOUNTER → 2020-09-23 | Outpatient (REF) | payer BC ==
[2020-09-23 14:21] LABS: HEMATOCRIT 39.9 % (36.0-47.0); HEMOGLOBIN 13.1 g/dl (12.0-15.5); MEAN CORPUSCULAR HEMOGLOBIN 31.5 pg (27.0-33.0); MEAN CORPUSCULAR HGB CONC 32.8 g/dl (32.0-36.5); MEAN CORPUSCULAR VOLUME 95.9 fl (80.0-96.0); PLATELET COUNT, AUTOMATED 176 10^3/uL (150-450); RED BLOOD COUNT 4.16 10^6/uL (4.00-5.40); WHITE BLOOD COUNT 3.5 10^3/uL (4.0-10.0)
[2020-09-23 14:31] LABS: INR 1.88
[2020-09-23 14:59] LABS: ALBUMIN 4.3 GM/DL (3.2-5.2); ALT/SGPT 45 U/L (12-78); BILIRUBIN,TOTAL 0.5 MG/DL (0.2-1.0); BLOOD UREA NITROGEN 19 MG/DL (7-18); CALCIUM LEVEL 9.3 MG/DL (8.5-10.1); CARBON DIOXIDE LEVEL 28 MEQ/L (21-32); CHLORIDE LEVEL 111 MEQ/L (98-107); CREATININE FOR GFR 0.93 MG/DL (0.55-1.30); GLOMERULAR FILTRATION RATE > 60.0 (>51); GLUCOSE, FASTING 91 MG/DL (70-100); LIPASE 287 U/L (73-393); MAGNESIUM LEVEL 2.2 MG/DL (1.8-2.4); POTASSIUM SERUM 4.4 MEQ/L (3.5-5.1); SODIUM LEVEL 144 MEQ/L (136-145); TOTAL PROTEIN 7.5 GM/DL (6.4-8.2)
[2020-09-23 15:07] LABS: TOTAL 25(OH) VITAMIN D 26.5 NG/ML (30.0-100.0); VITAMIN B12 LEVEL 584 PG/ML (247-911)
== END ==
LOC: M LABDRWAD 12:21
PROVIDERS: ATTEND Internal Medicine Gastroenterology
DX: R10.13 Epigastric pain (principal); K21.9 Gastro-esophageal reflux disease without esophagitis

== ENCOUNTER → 2020-12-19 | Outpatient (CLI) | payer BC ==
--- NOTE | 2020-12-19 16:49 | REPMRS ---
Patient History The patient states she has not had a clinical breast exam in over a year. Patient is postmenopausal. Family history of pancreatic cancer at age 50 or over in mother. No Hormone Replacement Therapy Patient states no breast complaints today. Patient has signed MRS History Sheet. Digital Woman Screen Mammo: December 19, 2020 - Exam #: [id number] Bilateral CC and MLO view(s) were taken. Technologist: Sarah Alvarado, Technologist Prior study comparison: December 19, 2019, bilateral digital woman screen mammo performed at [facility]. February 21, 2018, bilateral digital woman screen mammo performed at [facility]. FINDINGS: There are scattered fibroglandular densities. Screening. Digital screening (2D) mammography was performed bilaterally in the CC and MLO projections. Additionally, breast tomosynthesis (3D mammography) was performed bilaterally in the CC and MLO projections. Todays exam was compared to the prior exam/exams. By history, the patient has no complaints of a palpable breast abnormality or other significant breast complaints. The breasts are unchanged in size and shape. There are no lj-soft tissue densities or spiculated masses. There is no internal architectural distortion.Once again, stable benign appearing calcifications are seen.There are no suspicious lj-calcific clusters. Skin thickening or nipple retraction is not present. IMPRESSION: BI-RADS Category 2- Benign Findings. There is no evidence of malignant alteration of the breasts. Followup examination recommended in one year. The Volpara volumetric breast density category is B, there are scattered areas of fibroglandular density. This mammogram was read with the assistance of [facility] [employer],an FDA approved computer aided detection system for mammography. The lifetime Tyrer-Cuzick score is 5.6 % Negative x-ray reports should not delay surgical consultation if a dominant or clinically suspicious mass is present. Not all breast cancers can be identified by mammography. Therefore, we recommend that you continue to perform regular breast self-examination and physical examination and then promptly contact your physician of any concerns or changes. Adenosis and dense breasts may obscure an underlying neoplasm. Assessment: BI-RADS/ACR category 2 mammogram. Benign Findings. Recommendation Routine screening mammogram of both breasts in 1 year. Electronically Signed By: Tavo Lin DO 12/19/20 [id number]
== END ==
LOC: M WHC 15:48
PROVIDERS: ATTEND Internal Medicine
DX: Z12.31 Encounter for screening mammogram for malignant neoplasm of breast (principal); Z78.0 Asymptomatic menopausal state; Z80.8 Family history of malignant neoplasm of other organs or systems

== ENCOUNTER → 2021-03-12 | Outpatient (REF) | payer BC | LOC: M LAB REF 13:10 | PROVIDERS: ATTEND Nurse Practitioner Family | DX: E83.42 Hypomagnesemia (principal) ==

== ENCOUNTER → 2021-03-25 | Outpatient (CLI) | payer BC ==
--- NOTE | 2021-03-25 08:09 | REP ---
INDICATION: ELEVATED LFT'S COMPARISON: 02/22/2020 TECHNIQUE: Real time hendrix scale ultrasound examination using curved array transducer. FINDINGS: Liver is hyperechoic and consistent with fatty infiltration. No focal hepatic lesions are identified. Pancreas is incompletely evaluated due to interposed bowel gas. The gallbladder is not visualized and possibly related to prior cholecystectomy. No biliary ductal dilatation is appreciated. Right kidney is normal in reniform shape without hydronephrosis and measures 12.0 x 5.6 x 5.0 cm. No ascites in the visualized right upper quadrant. IMPRESSION: Hepatosteatosis. <Electronically signed by Walt Cruz > 03/25/21 [id number]
== END ==
LOC: M RAD 07:03
PROVIDERS: ATTEND Internal Medicine Gastroenterology
DX: R19.7 Diarrhea, unspecified (principal); R10.11 Right upper quadrant pain; K76.0 Fatty (change of) liver, not elsewhere classified

== ENCOUNTER → 2021-04-16 | Outpatient (CLI) | payer BC ==
--- NOTE | 2021-04-16 14:33 | REP ---
INDICATION: DYSPNEA ON EXERTION. COMPARISON: 05/23/2020 TECHNIQUE: PA and lateral FINDINGS: The superior mediastinal structures are midline. The cardiac silhouette is unremarkable in size, shape, and position. The diaphragmatic surfaces of the lungs are regular, and the costophrenic angles are clear. The pulmonary nguyen are clear. The imaged osseous structures are intact. IMPRESSION: There is no acute cardiopulmonary disease. <Electronically signed by Tavo Lin > 04/16/21 [id number]
== END ==
LOC: M ADAMS 14:19
PROVIDERS: ATTEND Internal Medicine Cardiovascular Disease
DX: R06.00 Dyspnea, unspecified (principal)

== ENCOUNTER → 2021-05-22 | Outpatient (REF) | payer BC ==
[~2021-05-22] MED LIST changes: -MAGN400T3; +MAGN400T33
[2021-05-22 13:50] LABS: HEMATOCRIT 41.2 % (36.0-47.0); HEMOGLOBIN 13.5 g/dl (12.0-15.5); MEAN CORPUSCULAR HGB CONC 32.8 g/dl (32.0-36.5); MEAN CORPUSCULAR VOLUME 94.5 fl (80.0-96.0); PLATELET COUNT, AUTOMATED 176 10^3/uL (150-450); RED BLOOD COUNT 4.36 10^6/uL (4.00-5.40); WHITE BLOOD COUNT 3.2 10^3/uL (4.0-10.0)
[2021-05-22 14:31] LABS: ALBUMIN 4.1 GM/DL (3.2-5.2); ALT/SGPT 45 U/L (12-78); BILIRUBIN,TOTAL 0.7 MG/DL (0.2-1.0); BLOOD UREA NITROGEN 19 MG/DL (7-18); CALCIUM LEVEL 9.3 MG/DL (8.5-10.1); CARBON DIOXIDE LEVEL 27 MEQ/L (21-32); CHLORIDE LEVEL 112 MEQ/L (98-107); CREATININE FOR GFR 0.76 MG/DL (0.55-1.30); GLOMERULAR FILTRATION RATE > 60.0 (>51); GLUCOSE, FASTING 109 MG/DL (70-100); LIPASE 347 U/L (73-393); MAGNESIUM LEVEL 2.3 MG/DL (1.8-2.4); POTASSIUM SERUM 4.1 MEQ/L (3.5-5.1); SODIUM LEVEL 145 MEQ/L (136-145); TOTAL 25(OH) VITAMIN D 30.7 NG/ML (30.0-100.0); TOTAL PROTEIN 7.2 GM/DL (6.4-8.2); VITAMIN B12 LEVEL 450 PG/ML (247-911)
== END ==
LOC: M LAB REF 13:22
PROVIDERS: ATTEND Internal Medicine Gastroenterology
DX: R10.13 Epigastric pain (principal); R19.7 Diarrhea, unspecified; K52.89 Other specified noninfective gastroenteritis and colitis

== ENCOUNTER → 2021-05-25 | Outpatient (REF) | payer BC | LOC: M LAB REF 16:10 | PROVIDERS: ATTEND Internal Medicine Gastroenterology | DX: R10.13 Epigastric pain (principal); R19.7 Diarrhea, unspecified; K52.89 Other specified noninfective gastroenteritis and colitis ==

== ENCOUNTER → 2021-06-30 | Outpatient (REF) | payer BC ==
[2021-06-30 13:41] LABS: ALBUMIN 4.1 GM/DL (3.2-5.2); ALT/SGPT 40 U/L (12-78); BILIRUBIN,TOTAL 0.6 MG/DL (0.2-1.0); BLOOD UREA NITROGEN 22 MG/DL (7-18); CALCIUM LEVEL 9.2 MG/DL (8.5-10.1); CARBON DIOXIDE LEVEL 28 MEQ/L (21-32); CHLORIDE LEVEL 110 MEQ/L (98-107); CREATININE FOR GFR 0.77 MG/DL (0.55-1.30); GLOMERULAR FILTRATION RATE > 60.0 (>51); GLUCOSE, FASTING 106 MG/DL (70-100); SODIUM LEVEL 145 MEQ/L (136-145); TOTAL PROTEIN 7.1 GM/DL (6.4-8.2)
== END ==
LOC: M LABDRWAD 12:34
PROVIDERS: ATTEND Internal Medicine Gastroenterology
DX: R10.11 Right upper quadrant pain (principal); R93.3 Abnormal findings on diagnostic imaging of other parts of digestive tract; K52.9 Noninfective gastroenteritis and colitis, unspecified

== ENCOUNTER → 2021-07-06 | Outpatient (CLI) | payer BC ==
[~2021-07-06] MED LIST changes: +GASTROGRAFIN SOLUTION 30ML (Q9963) As Ordered ONE; +ISOVUE-370 76% 100ML VIAL As Ordered ONE
== END ==
LOC: M RAD 11:18
PROVIDERS: ATTEND Internal Medicine Gastroenterology
DX: R10.11 Right upper quadrant pain (principal); K52.9 Noninfective gastroenteritis and colitis, unspecified; R93.3 Abnormal findings on diagnostic imaging of other parts of digestive tract; K76.89 Other specified diseases of liver
CPT/HCPCS: 74177; Q9963; Q9967

== ENCOUNTER → 2021-09-09 | Outpatient (REF) | payer BC ==
[~2021-09-09] MED LIST changes: -GASTROGRAFIN SOLUTION 30ML (Q9963) As Ordered ONE; -ISOVUE-370 76% 100ML VIAL As Ordered ONE
== END ==
LOC: M LAB REF 12:54
PROVIDERS: ATTEND Nurse Practitioner Family
DX: E83.42 Hypomagnesemia (principal)

== ENCOUNTER → 2022-01-13 | Outpatient (CLI) | payer BC | LOC: M WHC 10:03 | PROVIDERS: ATTEND Internal Medicine | DX: Z12.31 Encounter for screening mammogram for malignant neoplasm of breast (principal) ==

== ENCOUNTER → 2022-02-26 | Outpatient (CLI) | payer BC | LOC: M RAD 10:19 | PROVIDERS: ATTEND Internal Medicine Gastroenterology | DX: K76.0 Fatty (change of) liver, not elsewhere classified (principal); R16.1 Splenomegaly, not elsewhere classified ==

== ENCOUNTER → 2022-10-26 | Outpatient (REF) | payer BC, MEDICARE ==
[~2022-10-26] MED LIST changes: +TOPI-254; -TOPI50TA9
== END ==
LOC: M SFHCDERM 12:54
PROVIDERS: ATTEND Nurse Practitioner Family
DX: D23.71 Other benign neoplasm of skin of right lower limb, including hip (principal); L98.8 Other specified disorders of the skin and subcutaneous tissue

== ENCOUNTER → 2022-11-09 | Outpatient (CLI) | payer BC, MEDICARE | LOC: M RAD 08:20 | PROVIDERS: ATTEND Internal Medicine Gastroenterology | DX: R10.11 Right upper quadrant pain (principal); R10.13 Epigastric pain; R14.0 Abdominal distension (gaseous); K44.9 Diaphragmatic hernia without obstruction or gangrene; K52.9 Noninfective gastroenteritis and colitis, unspecified; K76.0 Fatty (change of) liver, not elsewhere classified; Z90.49 Acquired absence of other specified parts of digestive tract ==

== ENCOUNTER → 2023-03-04 | Outpatient (REF) | payer BC, MEDICARE ==
[~2023-03-04] MED LIST changes: -HYDR200T3 PO; +HYDR200T46 PO
== END ==
LOC: M LAB REF 12:19
PROVIDERS: ATTEND Internal Medicine Gastroenterology
DX: K52.9 Noninfective gastroenteritis and colitis, unspecified (principal); R10.11 Right upper quadrant pain; R10.84 Generalized abdominal pain

== ENCOUNTER → 2023-03-09 | Outpatient (CLI) | payer BC, MEDICARE | LOC: M RAD 08:22 | PROVIDERS: ATTEND Internal Medicine | DX: Z87.891 Personal history of nicotine dependence (principal) ==

== ENCOUNTER → 2023-03-23 | Outpatient (REF) | payer BC, MEDICARE ==
[2023-03-23 13:05] LABS: BASO % 0.9 % (0.0-1.0); EOS # 0.1 10^3/uL (0.0-0.5); EOS % 1.9 % (0.0-3.0); HEMATOCRIT 40.1 % (36.0-47.0); HEMOGLOBIN 13.3 g/dl (12.0-15.5); LYMPH % 22.3 % (24.0-44.0); MEAN CORPUSCULAR HEMOGLOBIN 30.8 pg (27.0-33.0); MEAN CORPUSCULAR HGB CONC 33.2 g/dl (32.0-36.5); MEAN CORPUSCULAR VOLUME 92.8 fl (80.0-96.0); MONO # 0.4 10^3/uL (0.0-0.8); MONO % 9.6 % (2.0-8.0); NEUTROPHILS # 2.8 10^3/uL (1.5-8.5); NEUTROPHILS % 65.1 % (36.0-66.0); PLATELET COUNT, AUTOMATED 134 10^3/uL (150-450); RED BLOOD COUNT 4.32 10^6/uL (4.00-5.40); WHITE BLOOD COUNT 4.3 10^3/uL (4.0-10.0)
[2023-03-23 13:12] LABS: INR 3.76; PROTHROMBIN TIME 36.3 SECONDS (12.5-14.5)
[2023-03-23 13:33] LABS: ALBUMIN 3.8 G/DL (3.2-5.2); ALKALINE PHOSPHATASE 102 U/L (46-116); ALT/SGPT 38 U/L (7.0-40); AST/SGOT 26 U/L (<34); BILIRUBIN,TOTAL 0.7 MG/DL (0.3-1.2); BLOOD UREA NITROGEN 14 MG/DL (9-23); CALCIUM LEVEL 8.8 MG/DL (8.3-10.6); CARBON DIOXIDE LEVEL 30 MMOL/L (20-31); CHLORIDE LEVEL 110 MMOL/L (98-107); CHOLESTEROL LEVEL 79 MG/DL (<200); CHOLESTEROL RISK RATIO 3.16 (<5); CREATININE FOR GFR 0.67 MG/DL (0.55-1.30); GLOMERULAR FILTRATION RATE > 60.0 (>45); GLUCOSE, FASTING 82 MG/DL (74-106); POTASSIUM SERUM 4.2 MMOL/L (3.5-5.1); SODIUM LEVEL 147 MMOL/L (136-145); TOTAL PROTEIN 6.5 G/DL (5.7-8.2); TRIGLYCERIDES LEVEL 190 MG/DL (<150)
== END ==
LOC: M LABDRWAD 12:31
PROVIDERS: ATTEND Internal Medicine
DX: I10 Essential (primary) hypertension (principal); D68.312 Antiphospholipid antibody with hemorrhagic disorder; E78.5 Hyperlipidemia, unspecified; Z79.01 Long term (current) use of anticoagulants

== ENCOUNTER → 2023-04-18 | Outpatient (CLI) | payer BC, MEDICARE | LOC: M WHC 09:16 | PROVIDERS: ATTEND Nurse Practitioner Family | DX: N18.2 Chronic kidney disease, stage 2 (mild) (principal); I15.0 Renovascular hypertension ==

== ENCOUNTER → 2023-05-09 | Outpatient (CLI) | payer BC, MEDICARE | LOC: M WHC 14:18 | PROVIDERS: ATTEND Internal Medicine | DX: Z12.31 Encounter for screening mammogram for malignant neoplasm of breast (principal) ==

== ENCOUNTER → 2023-08-03 | Outpatient (CLI) | payer BC, MEDICARE ==
[~2023-08-03] MED LIST changes: +IRBE300T25 PO; -IRBE300T7 PO; +TOPI-21; -TOPI-254
== END ==
LOC: M RAD 08:35
PROVIDERS: ATTEND Internal Medicine Gastroenterology
DX: K76.0 Fatty (change of) liver, not elsewhere classified (principal); K52.9 Noninfective gastroenteritis and colitis, unspecified; K44.9 Diaphragmatic hernia without obstruction or gangrene; R16.1 Splenomegaly, not elsewhere classified; I77.811 Abdominal aortic ectasia

== ENCOUNTER → 2023-11-03 | Outpatient (REF) | payer MEDICARE, BC ==
[2023-11-03 14:00] LABS: BASO % 0.7 % (0.0-1.0); EOS # 0.1 10^3/uL (0.0-0.5); HEMATOCRIT 42.9 % (36.0-47.0); HEMOGLOBIN 13.9 g/dl (12.0-15.5); LYMPH # 1.4 10^3/uL (1.5-5.0); LYMPH % 23.9 % (24.0-44.0); MEAN CORPUSCULAR HEMOGLOBIN 31.1 pg (27.0-33.0); MEAN CORPUSCULAR HGB CONC 32.4 g/dl (32.0-36.5); MONO # 0.7 10^3/uL (0.0-0.8); MONO % 11.1 % (2.0-8.0); NEUTROPHILS # 3.6 10^3/uL (1.5-8.5); PLATELET COUNT, AUTOMATED 150 10^3/uL (150-450); RED BLOOD COUNT 4.47 10^6/uL (4.00-5.40); WHITE BLOOD COUNT 5.9 10^3/uL (4.0-10.0)
[2023-11-03 14:37] LABS: ALBUMIN 3.9 G/DL (3.2-5.2); ALKALINE PHOSPHATASE 75 U/L (46-116); ALT/SGPT 36 U/L (7.0-40); AST/SGOT 22 U/L (<34); BILIRUBIN,TOTAL 0.8 MG/DL (0.3-1.2); BLOOD UREA NITROGEN 16 MG/DL (9-23); CALCIUM LEVEL 9.2 MG/DL (8.3-10.6); CARBON DIOXIDE LEVEL 27 MMOL/L (20-31); CHLORIDE LEVEL 109 MMOL/L (98-107); CHOLESTEROL LEVEL 66 MG/DL (<200); CHOLESTEROL RISK RATIO 2.32 (<5); CREATININE FOR GFR 0.69 MG/DL (0.55-1.30); GLOMERULAR FILTRATION RATE > 60.0 (>45); GLUCOSE, FASTING 84 MG/DL (74-106); HDL CHOLESTEROL 28.4 MG/DL (>40); NON-HDL-C 37.6 MG/DL; POTASSIUM SERUM 4.9 MMOL/L (3.5-5.1); SODIUM LEVEL 144 MMOL/L (136-145); TOTAL PROTEIN 6.5 G/DL (5.7-8.2); TRIGLYCERIDES LEVEL 93 MG/DL (<150)
== END ==
LOC: M LABDRWAD 12:45
PROVIDERS: ATTEND Internal Medicine
DX: D68.312 Antiphospholipid antibody with hemorrhagic disorder (principal); E78.5 Hyperlipidemia, unspecified

== ENCOUNTER → 2024-06-06 | Outpatient (CLI) | payer MEDICARE, BC ==
[~2024-06-06] MED LIST changes: -CYCL5TAB PO; +CYCL5TAB4 PO
== END ==
LOC: M WHC 14:29
PROVIDERS: ATTEND Internal Medicine
DX: Z12.31 Encounter for screening mammogram for malignant neoplasm of breast (principal)

== ENCOUNTER → 2024-06-19 | Outpatient (CLI) | payer MEDICARE, BC | LOC: M RAD 09:46 | PROVIDERS: ATTEND Internal Medicine Gastroenterology | DX: R10.11 Right upper quadrant pain (principal) ==

== ENCOUNTER → 2024-07-10 | Outpatient (CLI) | payer MEDICARE, BC | LOC: M RAD 13:20 | PROVIDERS: ATTEND Internal Medicine | DX: F17.210 Nicotine dependence, cigarettes, uncomplicated (principal) ==

== ENCOUNTER → 2025-01-15 | Outpatient (CLI) | payer MEDICARE, BC ==
[~2025-01-15] MED LIST changes: +ISOVUE-370 76% 100 ML VIAL ONE; -PREG50CA PO; +PREG50CA87 PO
== END ==
LOC: M PLAIMG 12:53
DX: K75.81 Nonalcoholic steatohepatitis (NASH) (principal)
CPT/HCPCS: 74170; Q9967

== ENCOUNTER → 2025-06-12 | Outpatient (CLI) | payer MEDICARE, BC ==
[~2025-06-12] MED LIST changes: -ISOVUE-370 76% 100 ML VIAL ONE
== END ==
LOC: M WHC 06:38
PROVIDERS: ATTEND Internal Medicine
DX: Z12.31 Encounter for screening mammogram for malignant neoplasm of breast (principal); R92.313 Mammographic fatty tissue density, bilateral breasts